=== PATIENT | female | born 1995 | race Two or more races ===

== ENCOUNTER 2017-08-05 21:28 | Emergency (ER) | payer OTHER ==
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
[2017-08-05 22:03] LABS: PLATELET COUNT 407 10^3/uL (150-400)
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
--- NOTE | 2017-08-06 06:41 | ASMTTCLDSP ---
TLC Discharge Disposition Disposition: Answers: Transfer Disposition Notes: Notes: Pt accepted for transfer/admission to [facility] under Dr. Patricio Jackson. Discharge Concerns/Recommendations: Notes: In consultation with [facility] ED physician, Rodger Nix MD concurred that pt appears to meet 27-65 criteria requiring psychiatric hospitalization as the patient appears to be an imminent risk of harm to self due to a mental illness condition. Was patient given the Answers: Not applicable Inpatient Behavioral Health Prohibited Belongings List while in the ED? Type of Hold: Answers: M1/72-hour Hold Hold initiated by: Answers: ED Physician For Transfers, Accepting Facility: [facility] For Transfers, Accepting Juni Jackson MD Psychiatrist: For Transfers, Reason [facility] 3N at capacity Patient is Being Transferred: Date Signed: 08/06/2017 06:40 AM Electronically Signed By:Kevin Pollock
[2017-08-06 11:55] VITALS: BP 119/76
== END 2017-08-06 08:55 ==
PROC: GZ11ZZZ Psychological Tests, Personality and Behavioral (ICD-10-PCS; principal; 2017-08-05)
DX: R45.851 Suicidal ideations (principal); F32.2 Major depressive disorder, single episode, severe without psychotic features; F17.200 Nicotine dependence, unspecified, uncomplicated
CPT/HCPCS: 80305; G0480